=== PATIENT | female | born 1995 | race African-American/Black ===

== ENCOUNTER → 2018-12-02 | Outpatient (CLI) | payer OTHER ==
[2018-12-02 11:26] LABS: HCT 37.8 % (34.0-46.0); HGB 12.1 gm/dL (11.4-16.0); MCH 29.5 pg (25.0-35.0); Mean Platelet Volume 9.2; Platelet Count 290 k/uL (150-450); RDW 12.8 % (11.5-15.5); WBC 10.7 k/uL (3.8-10.6)
== END | disposition home or self-care (01) ==
LOC: LABWHC1 09:33
PROVIDERS: ATTEND Obstetrics & Gynecology
DX: Z34.83 Encounter for supervision of other normal pregnancy, third trimester (principal)
CPT/HCPCS: 36415; 82950; 85027

== ENCOUNTER 2018-12-14 16:11 | Outpatient (CLI) | payer OTHER ==
[2018-12-14 17:25] VITALS: BP 140/80; RESP 16; TEMP 98.1
--- NOTE | 2018-12-14 17:51 | US ---
EXAMINATION TYPE: US OB limited DATE OF EXAM: 12/14/2018 COMPARISON: NONE CLINICAL HISTORY: pt questions srom yesterday am. dr duffys u/s for AIXA . EXAM PERFORMED: Transabdominal (TA) GESTATIONAL AGE / DATING Physician Established: (36 weeks/1 days) EDC: 01/10/2019 No growth performed on today?s study per ordering physician SURVEY AIXA: 15.6 cm Normal Ultrasound evidence of premature rupture of membranes? No HEART RATE: 135 bpm RHYTHM: Normal Impression: Single live intrauterine gestation identified. Amniotic fluid index is calculated within normal limits on limited study. IMPRESSION:
[2018-12-14 17:54] VITALS: PULSE 110
--- NOTE | 2018-12-20 17:17 | P.MSEPDOC ---
Presenting Problems - Arrival Data Date of Arrival on Unit: 12/14/18 Time of Arrival on Unit: 16:11 Mode of Transport: Ambulatory - Complaint OB-Reason for Admission/Chief Complaint: Rule Out PROM Comment: Pt states feeling damp since yesterday morning; cramping Medical History - Information : 2 Para: 1 Term: 1 : 0 Abortions: Spontaneous or Elective: 0 Number of Living Children: 1 - Gestational Age Gestational Age by RACHEL (wks/days): 35 Weeks and 6 Days - History Complications: GBS+, Prior Review of Systems - Review of Systems Constitutional: No problems Breast: No problems ENT: No problems Cardiovascular: No problems Respiratory: No problems Gastrointestinal: No problems Genitourinary: No problems Musculoskeletal: No problems Neurological: No problems Skin: No problems Vital Signs - Temperature Temperature: 98.1 F Temperature Source: Temporal Artery Scan - Pulse Right Apical Pulse Rate: 110 Pulse Assessment Method: Pulse Oximetry - Respirations Respiratory Rate: 16 Oxygen Delivery Method: Room Air O2 Sat by Pulse Oximetry: 97 - Blood Pressure Right Arm Blood Pressure: 140/80 Blood Pressure Mean: 100 Blood Pressure Source: Automatic Cuff Medical Screen Scoring (Pre) - Cervical Exam Dilation: Exam Deferred Effacement: Exam Deferred Membranes: Intact - Uterine Contractions Frequency: N/A Duration: N/A Intensity: N/A - Maternal Vital Signs Maternal Temperature: N/A Maternal Blood Pressure: N/A Signs of Preeclampsia: N/A Maternal Respirations: N/A - Maternal Trauma Maternal Trauma: N/A - Assessment Baseline FHR: 140 Heart Rate - NICHD Category: Category I (Normal) = 0 NST: Reactive Position: N/A Station: N/A - Total Score Total Score (Pre): 0 - Level of Risk Level of Risk: Low (0-5) Physician Notification (Pre) - Physician Notified Physician Notified Date: 12/14/18 Physician Notified Time: 17:40 Physician/Practitioner Notifed:: Haritha Spoke With: Haritha New Order Received: Yes - Notification Comment Comment: Reported neg amnisure, oswald 15.6, sve not performed r/t pt not julio and comfortable. States to d/c home. Follow up as scheduled. Disposition - Disposition OB Disposition: Discharge to home, Written follow up instructions reviewed Discharge Date: 12/14/18 Discharge Time: 17:50 I agree with the RN Medical Screening Exam: Yes Risk & Benefit of care provided described in d/c instruction: Yes Diagnosis: FALSE LABOR AT OR AFTER 37 COMPLETED WEEKS OF GESTATION
== END 2018-12-14 17:50 | disposition home or self-care (01) ==
LOC: FBPOP 16:11
PROVIDERS: ATTEND Obstetrics & Gynecology
DX: O47.03 False labor before 37 completed weeks of gestation, third trimester (principal); Z3A.35 35 weeks gestation of pregnancy
CPT/HCPCS: 59025; 76815; 84112

== ENCOUNTER 2018-12-25 11:14 | Inpatient (IN) | payer OTHER ==
[2018-12-25 12:23] LABS: Basophils % (A) 0 %; Eosinophils # (A) 0.1 k/uL (0-0.7); Eosinophils % (A) 1 %; HCT 37.5 % (34.0-46.0); HGB 11.9 gm/dL (11.4-16.0); Lymphocytes # (A) 2.4 k/uL (1.0-4.8); Lymphocytes % (A) 24 %; MCH 27.7 pg (25.0-35.0); MCHC 31.7 g/dL (31.0-37.0); MCV 87.4 fL (80.0-100.0); Mean Platelet Volume 9.6; Monocytes # (A) 0.8 k/uL (0-1.0); Monocytes % (A) 8 %; Neutrophils # (A) 6.3 k/uL (1.3-7.7); Neutrophils % (A) 63 %; Platelet Count 306 k/uL (150-450); RBC 4.29 m/uL (3.80-5.40); RDW 12.5 % (11.5-15.5)
[2018-12-25 12:35] LABS: ALT 26 U/L (9-52); AST 22 U/L (14-36); Blood Urea Nitrogen 3 mg/dL (7-17); LDH 404 U/L (313-618)
[2018-12-25 13:30] LABS: Glucose,Urine (UA) Negative (Negative); Ketones,Urine Negative (Negative); Protein,Urine Trace (Negative)
[2018-12-25] MEDS ORDERED: ceFAZolin IN SWFI 2 GM/20 ML SYRINGE IVP ONE (13:59)
[2018-12-25] MEDS ORDERED: CITRIC ACID-SODIUM CITRATE 15 ML CUP PO ONE (13:59)
[2018-12-25 14:20] VITALS: BMI 40.8
[2018-12-25] MEDS: LACTATED RINGERS 1,000 ML IV SCH ×2 (14:47→22:20)
[2018-12-25] MEDS ORDERED: DEXAMETHASONE SOD PHOS (MDV) 100 MG/10 ML VIAL ONE (16:40)
[2018-12-25] MEDS ORDERED: ONDANSETRON 4 MG/2 ML VIAL ONE (16:40)
[2018-12-25] MEDS ORDERED: MORPHINE SULFATE (PF) 0.3 MG/0.3 ML SYR ONE (16:40)
[2018-12-25] MEDS ORDERED: OXYTOCIN 10 UNIT/ML 1 ML VIAL ONE (16:40)
[2018-12-25] MEDS ORDERED: NALBUPHINE 10 MG/ML (1 ML AMP) ONE (16:40)
[2018-12-25] MEDS ORDERED: NALOXONE 0.4 MG/ML 1 ML VIAL IV PRN (17:21)
[2018-12-25] MEDS ORDERED: MORPHINE SULFATE 2 MG/ML SYRINGE IVP PRN (17:21)
[2018-12-25] MEDS ORDERED: ONDANSETRON 4 MG/2 ML VIAL IVP PRN ×2 (17:21→17:36)
[2018-12-25] MEDS ORDERED: diphenhydrAMINE 50 MG/ML 1 ML VIAL IVP PRN ×3 (17:21→17:36)
[2018-12-25] MEDS ORDERED: METOCLOPRAMIDE 5 MG/ML 2 ML VIAL IVP PRN (17:36)
[2018-12-25] MEDS ORDERED: ZOLPIDEM 5 MG TAB PO PRN (17:36)
[2018-12-25] MEDS ORDERED: diphenhydrAMINE 25 MG CAP PO PRN (17:36)
[2018-12-25] MEDS ORDERED: HYDROcodone/APAP 7.5-325MG 1 EACH TAB PO PRN (17:36)
[2018-12-25] MEDS ORDERED: diphenhydrAMINE 50 MG CAP PO PRN (17:36)
[2018-12-25] MEDS ORDERED: KETOROLAC 30 MG/ML 1 ML VIAL IVP PRN (17:36)
--- NOTE | 2018-12-25 17:39 | P.HPOB ---
History of Present Illness H&P Date: 12/25/18 Chief Complaint: Intrauterine at term: Gestational hypertension patient is a 23-year-old at 37 weeks who arrived to my office today with elevated blood pressure 140/70 8. She was sent to labor and delivery and was monitored here she had repetitive but pressures were minimally elevated and due to that she is past 37 weeks a decision to move forward with a repeat section for gestational hypertension was made. Her course was initially well, I did not start seeing her until 32 weeks as she was transferred care. She was taking aspirin through most the Precis due to a history of preeclampsia, she also had a history of hemorrhage during her last . During our observations today she is done very well, her blood pressures however have increased through the day and have been slightly elevated going into the section. Pertinent labs include O+ blood type, Rh and it was negative, rubella was immune, hepatitis B surface antigen and RPR were both negative GBS was positive but she is intact. On physical exam vital signs are stable and afebrile. Heart regular, lungs clear, extremities without pain. Abdomen soft gravid uterus is noted. Category 1 tracing is noted. Assessment intrauterine at term: Gestational hypertension Plan repeat section. Past Medical History Past Medical History: No Reported History History of Any Multi-Drug Resistant Organisms: None Reported Past Surgical History: Section, Tonsillectomy Additional Past Anesthesia/Blood Transfusion Reaction / Comment(s): no hx of transfusion Past Psychological History: Anxiety Smoking Status: Former smoker Past Alcohol Use History: None Reported Past Drug Use History: Marijuana Additional Drug Use History / Comment(s): before - Past Family History Mother Family Medical History: Cancer, Thyroid Disorder Medications and Allergies Home Medications Medication Instructions Recorded Confirmed Type Aspirin [Adult Low Dose Aspirin EC] 81 mg PO DAILY 12/14/18 12/25/18 History Pnv,Calcium 72/Iron/Folic Acid 1 each PO DAILY 12/25/18 12/25/18 History [ Plus Tablet] Allergies Allergy/AdvReac Type Severity Reaction Status Date / Time No Known Allergies Allergy Verified 12/25/18 11:36 Exam Osteopathic Statement: *. No significant issues noted on an osteopathic structural exam other than those noted in the History and Physical/Consult. Vital Signs Temp Pulse Resp BP Pulse Ox 12/25/18 14:12 99.6 F 94 18 135/75 12/25/18 11:45 98.6 F 141 H 20 135/71 100 Intake and Output 12/25/18 12/25/18 12/25/18 06:59 14:59 22:59 Other: # Voids 2 Weight 114.759 kg - OBG Physical Exam Breast: both: normal (no masses) Abdomen: bowel sounds normal, no diffuse tenderness, no bruit present, no guarding noted, no hepatomegaly, no splenomegaly, no mass Vulva: both: normal Vagina: normal moisture, no discharge Cervix: no lesion, no discharge Uterus: normal size, normal contour Adnexa: both: normal Anus/Rectum: normal perianal skin, no rectal mass, no hemorrhoids, heme negative Results Result Diagrams: 12/25/18 12:11 12/25/18 12:11 Abnormal Lab Results - Last 24 Hours (Table) 12/25/18 12/25/18 Range/Units 11:55 12:11 BUN 3 L (7-17) mg/dL Urine Protein Trace H (Negative)
[2018-12-25] MEDS ORDERED: LACTATED RINGERS 1,000 ML IV SCH (17:45)
--- NOTE | 2018-12-25 17:46 | P.OP ---
Date of Procedure: 12/25/18 Preoperative Diagnosis: Intrauterine term: Gestational hypertension Postoperative Diagnosis: Same Procedure(s) Performed: Repeat low transverse section Anesthesia: spinal Surgeon: Jarrod Mg Hair Boiler Operator #1: Maksim Ramos Estimated Blood Loss (ml): 600 IV fluids (ml): 1,000 Urine output (ml): 100 Pathology: other (Placenta) Condition: stable Disposition: floor Operative Findings: Female scores of 7 and 9 at one and 5 minutes respectively and the weight was 6 lbs. 8 oz. Description of Procedure: Patient was taken to the operating suite where a spinal anesthetic was found be adequate. She was prepped and draped in normal sterile fashion and placed in dorsal supine position with leftward tilt. Initially a Pfannenstiel skin incision was made and this incision was then carried through to underlying layer of the fascia with the second knife. Fascia was then nicked in the midline and this opening was extended laterally with Galdamez scissors. Superior and inferior aspect of this incision were then grasped tented up and bluntly and sharply dissected off the rectus muscles. Significant scarring of her fascia is noted. Once fascial incision was extended blunt dissection through the peritoneum was made and this opening was extended superiorly and inferiorly with good visualization of both bowel bladder. Bladder blade was then placed and the vesicouterine peritoneum identified and entered sharply with Metzenbaum scissors. This opening was then extended across face uterus bladder was dissected out of the operative field. Knife was then used to incise uterus and this opening was fully developed with hemostat and then bluntly extended. Head was noted and was elevated into the incision however was unable to pass through the incision due to how tight her fascial layer and muscular lower layer was a modified Maylard was done on the right side incised and the rectus muscles and then using a vacuum with 1 pop-off the baby was delivered. Vacuum was pumped to the minimum green psi and once this was accomplished the first pop-off occurred almost immediately likely due to significant hair of the baby and just was not well applied, the second time with application the baby was easily lifted into the incision and delivered in less than 15 seconds. Once this was completed vacuum was removed shoulders were easily delivered with gentle downward upper traction followed by the remainder the baby. Mouth and nares were then bulb suctioned and nursery personnel was present to assume care with umbilical cord being clamped cut usual fashion. Placenta was then delivered intact and Pitocin was added to the IV. Uterus was then exteriorized cleared of clots and debris and closed in 21 layer with 0 Vicryl suture. Once excellent hemostasis was obtained blood and debris was suctioned from the posterior cul-de-sac and uterus was reinserted into the abdomen. Peritoneal layer was then closed with 0 Vicryl suture. Fascial layer was closed with 0 Vicryl suture. One layer of 3-0 Vicryl was placed in deep subcuticular tissues to reapproximate the skin and close space, skin was then closed with 3-0 Vicryl. Sponge, lap, needle counts were all correct 2. Patient was then taken to the recovery room in stable and satisfactory condition.
[2018-12-25] MEDS: SENNOSIDES-DOCUSATE SODIUM 1 EACH TAB PO SCH (19:45)
[2018-12-26 06:48] LABS: Basophils % (A) 0 %; Eosinophils # (A) 0.1 k/uL (0-0.7); Eosinophils % (A) 0 %; HCT 36.1 % (34.0-46.0); HGB 11.4 gm/dL (11.4-16.0); Lymphocytes % (A) 12 %; MCH 27.5 pg (25.0-35.0); MCHC 31.6 g/dL (31.0-37.0); Mean Platelet Volume 9.1; Monocytes # (A) 1.4 k/uL (0-1.0); Monocytes % (A) 8 %; Neutrophils # (A) 12.9 k/uL (1.3-7.7); Neutrophils % (A) 77 %; Platelet Count 283 k/uL (150-450); RBC 4.15 m/uL (3.80-5.40); RDW 12.3 % (11.5-15.5); WBC 16.7 k/uL (3.8-10.6)
--- NOTE | 2018-12-26 07:07 | P.PNOBGPC ---
Subjective - Subjective Patient reports: Reports appetite normal, Reports voiding normally, Reports pain well controlled, Reports ambulating normally : doing well Objective - Vital Signs Latest vital signs: Vital Signs Temp Pulse Resp BP Pulse Ox 12/26/18 05:00 16 12/26/18 03:57 98.6 F 88 16 136/76 96 12/26/18 02:00 16 12/25/18 23:30 98.6 F 92 16 141/64 96 12/25/18 22:00 16 12/25/18 20:21 16 98 12/25/18 20:00 16 12/25/18 19:46 99.4 F 90 16 138/83 98 12/25/18 19:16 99.0 F 87 16 128/63 98 12/25/18 18:46 95 16 125/58 97 12/25/18 18:31 93 16 124/56 97 12/25/18 18:21 16 96 12/25/18 18:16 93 16 126/60 97 12/25/18 18:01 83 16 118/54 97 12/25/18 17:46 98.3 F 78 16 120/58 97 12/25/18 14:12 99.6 F 94 18 135/75 12/25/18 11:45 98.6 F 141 H 20 135/71 100 Intake and Output 12/25/18 12/26/18 12/26/18 22:59 06:59 14:59 Intake Total 900 Output Total 600 3050 Balance 300 -3050 Intake: IV 900 Lactated Ringers 1,000 ml 900 @ 125 mls/hr IV .Q8H [facility] Rx#:[id number] Output: Urine 600 3050 Uretheral (Yuan) 600 Other: Voiding Method Indwelling Catheter Toilet # Voids 1 - Exam Lungs: bilateral: normal Chest: Normal S1, Normal S2 Extremities: Present: normal Abdomen: Present: normal appearance, soft. Absent: distention, tenderness Incision: Present: normal, dry, intact Uterus: Present: normal, firm - Labs Labs: Abnormal Lab Results - Last 24 Hours (Table) 12/25/18 12/25/18 12/26/18 Range/Units 11:55 12:11 06:26 WBC 16.7 H (3.8-10.6) k/uL Neutrophils # 12.9 H (1.3-7.7) k/uL Monocytes # 1.4 H (0-1.0) k/uL BUN 3 L (7-17) mg/dL Urine Protein Trace H (Negative) Assessment and Plan Assessment: Post operative day #1. Patient is resting without complaints. Vital signs are stable she is afebrile. Uterus is firm nontender and her incision is intact and dry. CBC is pending at the time of this dictation. My impression this is a normal post course. Plan today is to advance her diet, allow the patient to shower, encourage ambulation, and check a CBC. Most likely home tomorrow or Friday. (1) delivery delivered Current Visit: Yes Status: Acute Code(s): O82 - ENCOUNTER FOR DELIVERY WITHOUT INDICATION SNOMED Code(s): 164152174
[2018-12-26] MEDS: SENNOSIDES-DOCUSATE SODIUM 1 EACH TAB PO SCH ×2 (08:22→19:41)
--- NOTE | 2018-12-26 09:14 | P.PN ---
Progress Note - Text Progress Note Date: 12/26/18 23 yo female status post . Post-op day #1. Patient received intrathecal Duramorph. Patient was seen today, sitting up in bed, no complaints, pain VAS score 0/10, no headache, no itching, no nausea and vomiting. Assessment and plan: Doing well in general no complications from anesthesia.
[2018-12-26] MEDS: ACETAMINOPHEN TAB 325 MG TAB PO PRN (19:40)
--- NOTE | 2018-12-27 07:02 | P.PNOBGPC ---
Subjective - Subjective Patient reports: Reports appetite normal, Reports voiding normally, Reports pain well controlled, Reports ambulating normally : doing well, in NICU (Jaundice.) Objective - Vital Signs Latest vital signs: Vital Signs Temp Pulse Resp BP Pulse Ox 12/26/18 23:47 98.1 F 86 16 128/83 98 12/26/18 16:00 98.0 F 95 14 119/73 12/26/18 12:00 97.9 F 83 16 112/70 12/26/18 08:00 98.2 F 84 14 124/79 Intake and Output 12/26/18 12/26/18 12/27/18 14:59 22:59 06:59 Other: Voiding Method Toilet # Voids 3 - Exam Lungs: bilateral: normal Chest: Normal S1, Normal S2 Extremities: Present: normal Abdomen: Present: normal appearance, soft. Absent: distention, tenderness Incision: Present: normal, dry, intact Uterus: Present: normal, firm Assessment and Plan Assessment: Postoperative day #2. This patient is resting without complaints. Vital signs are stable and she is afebrile. Uterus is firm nontender and her incision is intact and dry. CBC yesterday was normal. Patient is ambulating and urinating without difficulty. Unfortunately her baby is having some jaundice issues and is requiring double phototherapy unfortunately (she states she had this with her previous baby), therefore she is going to stay until most likely tomorrow. (1) delivery delivered Current Visit: Yes Status: Acute Code(s): O82 - ENCOUNTER FOR DELIVERY WITHOUT INDICATION SNOMED Code(s): 187102576
[2018-12-27] MEDS: SENNOSIDES-DOCUSATE SODIUM 1 EACH TAB PO SCH ×2 (08:01→20:11)
[2018-12-27] MEDS: IBUPROFEN 600 MG TAB PO PRN ×2 (08:02→23:15)
[2018-12-27] MEDS: ACETAMINOPHEN TAB 325 MG TAB PO PRN (19:55)
[2018-12-28] MEDS: SENNOSIDES-DOCUSATE SODIUM 1 EACH TAB PO SCH (09:50)
[2018-12-29] MEDS: IBUPROFEN 600 MG TAB PO PRN (07:57)
--- NOTE | 2018-12-29 10:02 | P.DS ---
Providers Date of admission: 12/25/18 13:45 Expected date of discharge: 12/29/18 Attending physician: Jarrod Mg Primary care physician: Stated None Hospital Course: Patient is doing very well post op day 4. She is ambulating, voiding, and she is tolerating her diet. She voices no complaints. Baby is still in special care nursery for hyperbilirubinemia. Plan discharged home today. Vital signs stable and afebrile. Heart regular, lungs clear, extremities without pain. Abdomen soft nontender and her incision is clean dry and intact. Prescriptions for Sharon and Motrin has been provided. All other questions were answered for her prior to discharge. She is stable for discharge this time. Patient Condition at Discharge: Good Plan - Discharge Summary New Discharge Prescriptions: New Ibuprofen [Motrin] 600 mg PO Q6HR PRN #30 tab PRN Reason: Pain HYDROcodone/APAP 5-325MG [Sharon 5-325] 1 tab PO Q4HR PRN #30 tab PRN Reason: Pain No Action Aspirin [Adult Low Dose Aspirin EC] 81 mg PO DAILY Pnv,Calcium 72/Iron/Folic Acid [ Plus Tablet] 1 each PO DAILY Discharge Medication List Aspirin [Adult Low Dose Aspirin EC] 81 mg PO DAILY 12/14/18 [History] Pnv,Calcium 72/Iron/Folic Acid [ Plus Tablet] 1 each PO DAILY 12/25/18 [History] HYDROcodone/APAP 5-325MG [Sharon 5-325] 1 tab PO Q4HR PRN #30 tab 12/29/18 [Rx] Ibuprofen [Motrin] 600 mg PO Q6HR PRN #30 tab 12/29/18 [Rx] Follow up Appointment(s)/Referral(s): Jarrod Mg DO [Doctor of Osteopathic Medicine] - 1 Week Patient Instructions/Handouts: (DC) Activity/Diet/Wound Care/Special Instructions: No heavy lifting, limit stairs and driving, and pelvic rest. If any high temperatures, heavy bleeding, or severe pain call my office Discharge Disposition: HOME SELF-CARE
[2018-12-29 15:28] VITALS: BP 111/67; PULSE 88; RESP 15; TEMP 97.9
[2018-12-29] MEDS: SENNOSIDES-DOCUSATE SODIUM 1 EACH TAB PO SCH (15:28)
== END 2018-12-29 17:45 | disposition home or self-care (01) | DRG 788 ==
LOC: FBPOP 11:14 → 4FBP 13:45
PROVIDERS: ADMIT Obstetrics & Gynecology; ATTEND Obstetrics & Gynecology
PROC: 10D00Z1 Extraction of Products of Conception, Low, Open Approach (ICD-10-PCS; principal; 2018-12-25 16:57)
DX: O13.4 Gestational [pregnancy-induced] hypertension without significant proteinuria, complicating childbirth (principal); O34.211 Maternal care for low transverse scar from previous cesarean delivery; N85.8 Other specified noninflammatory disorders of uterus; Z3A.37 37 weeks gestation of pregnancy; Z37.0 Single live birth; O99.824 Streptococcus B carrier state complicating childbirth; O99.344 Other mental disorders complicating childbirth; F41.9 Anxiety disorder, unspecified; Z79.82 Long term (current) use of aspirin; Z79.899 Other long term (current) drug therapy; Z87.891 Personal history of nicotine dependence; Z80.9 Family history of malignant neoplasm, unspecified; Z83.49 Family history of other endocrine, nutritional and metabolic diseases
CPT/HCPCS: 59025; 81003; 82565; 82570; 83615; 84156; 84443; 84450; 84460; 84520; 85025; 86850; 86900; 86901; 88307; 99215

== ENCOUNTER 2020-02-14 11:59 | Emergency (ER) | payer OTHER ==
[2020-02-14] MEDS ORDERED: diphenhydrAMINE 50 MG/ML 1 ML VIAL IVP STA (12:19)
[2020-02-14] MEDS ORDERED: SODIUM CHLORIDE 0.9% 1,000 ML IV STA ×2 (12:19→13:59)
[2020-02-14] MEDS ORDERED: METOCLOPRAMIDE 5 MG/ML 2 ML VIAL IVP STA (12:19)
--- NOTE | 2020-02-14 12:24 | ED ---
General Adult HPI - General Chief complaint: Nausea/Vomiting/Diarrhea Stated complaint: Vomiting, 7 weeks Time Seen by Provider: 02/14/20 12:11 Source: patient Mode of arrival: ambulatory Limitations: no limitations - History of Present Illness Initial comments: Patient is a 24-year-old female, 7 weeks , presenting to the emergency department with a chief complaint of nausea vomiting abdominal cramping. Patient reports nausea with multiple episodes of nonbilious vomiting. Patient states this morning she has noticed some red tinged vomitus. Denies any diarrhea. Denies any vaginal bleeding, discharge or irritation. States she's been taking her prenatals and is an appointment scheduled with her OB in 2 weeks. Denies any cough chest pain back pain fevers night sweats or chills. Denies taking any medications to alleviate the symptoms. - Related Data Home Medications Medication Instructions Recorded Confirmed Aspirin [Adult Low Dose Aspirin EC] 81 mg PO DAILY 12/14/18 12/25/18 Pnv,Calcium 72/Iron/Folic Acid 1 each PO DAILY 12/25/18 12/25/18 [ Plus Tablet] Previous Rx's Medication Instructions Recorded HYDROcodone/APAP 5-325MG [[place]linda 1 tab PO Q4HR PRN #30 tab 12/29/18 5-325] Ibuprofen [Motrin] 600 mg PO Q6HR PRN #30 tab 12/29/18 Allergies Allergy/AdvReac Type Severity Reaction Status Date / Time No Known Allergies Allergy Verified 02/14/20 12:05 Review of Systems ROS Statement: Those systems with pertinent positive or pertinent negative responses have been documented in the HPI. ROS Other: All systems not noted in ROS Statement are negative. Past Medical History Past Medical History: No Reported History History of Any Multi-Drug Resistant Organisms: None Reported Past Surgical History: Section, Tonsillectomy Additional Past Anesthesia/Blood Transfusion Reaction / Comment(s): no hx of transfusion Past Psychological History: Anxiety Smoking Status: Former smoker Past Alcohol Use History: None Reported Past Drug Use History: Marijuana - Past Family History Mother Family Medical History: Cancer, Thyroid Disorder General Exam Limitations: no limitations General appearance: alert, in no apparent distress Head exam: Present: atraumatic, normocephalic, normal inspection Eye exam: Present: normal appearance, PERRL, EOMI Pupils: Present: normal accommodation ENT exam: Present: normal exam, normal oropharynx, mucous membranes moist, TM's normal bilaterally, normal external ear exam Neck exam: Present: normal inspection, full ROM Respiratory exam: Present: normal lung sounds bilaterally Cardiovascular Exam: Present: regular rate, normal rhythm, normal heart sounds GI/Abdominal exam: Present: soft, normal bowel sounds. Absent: distended, tenderness, guarding Extremities exam: Present: normal inspection, full ROM Back exam: Present: normal inspection, full ROM Neurological exam: Present: alert, oriented X3, normal gait Psychiatric exam: Present: normal affect, normal mood Skin exam: Present: warm, dry, intact, normal color Course Vital Signs 02/14/20 02/14/20 02/14/20 12:03 14:20 15:06 Temperature 98.2 F 98 F 97.9 F Pulse Rate 83 61 74 Respiratory 20 18 17 Rate Blood Pressure 159/77 108/71 110/78 O2 Sat by Pulse 100 100 100 Oximetry Medical Decision Making - Medical Decision Making Patient is a 24-year-old female, , 7 week presenting to the emergency department with a chief complaint of nausea vomiting. Patient is currently taking prenatals and has been having nausea vomiting for the past 24 hours. CBC and CMP are unremarkable. HCG Quant is over 60,000 which is appropriate for her gestational age. Ultrasound shows a single, live intrauterine . UA shows no signs of urinary tract infection but does show 17 red blood cells. Patient denies any vaginal discharge, bleeding or previous spotting. Patient was given Reglan, Benadryl and 1.8 L of fluids. Reevaluation patient reports great improvement in symptoms and feels comfortable going home. Patient has an appointment to see . Return parameters thoroughly discussed with patient is an ascending and agreeable. Case discussed with physician. - Lab Data Result diagrams: 02/14/20 12:38 02/14/20 12:38 Lab Results 02/14/20 02/14/20 02/14/20 Range/Units 12:38 12:38 12:38 WBC 9.7 (3.8-10.6) k/uL RBC 4.52 (3.80-5.40) m/uL Hgb 13.7 (11.4-16.0) gm/dL Hct 42.2 (34.0-46.0) % MCV 93.4 (80.0-100.0) fL MCH 30.3 (25.0-35.0) pg MCHC 32.5 (31.0-37.0) g/dL RDW 12.3 (11.5-15.5) % Plt Count 312 (150-450) k/uL Neutrophils % 74 % Lymphocytes % 18 % Monocytes % 6 % Eosinophils % 1 % Basophils % 0 % Neutrophils # 7.2 (1.3-7.7) k/uL Lymphocytes # 1.8 (1.0-4.8) k/uL Monocytes # 0.5 (0-1.0) k/uL Eosinophils # 0.1 (0-0.7) k/uL Basophils # 0.0 (0-0.2) k/uL Sodium 137 (137-145) mmol/L Potassium 4.2 (3.5-5.1) mmol/L Chloride 104 (98-107) mmol/L Carbon Dioxide 23 (22-30) mmol/L Anion Gap 10 mmol/L BUN 7 (7-17) mg/dL Creatinine 0.46 L (0.52-1.04) mg/dL Est GFR (CKD-EPI)AfAm >90 (>60 ml/min/1.73 sqM) Est GFR (CKD-EPI)NonAf >90 (>60 ml/min/1.73 sqM) Glucose 84 (74-99) mg/dL Calcium 9.9 (8.4-10.2) mg/dL Total Bilirubin 0.9 (0.2-1.3) mg/dL AST 27 (14-36) U/L ALT 19 (4-34) U/L Alkaline Phosphatase 71 (38-126) U/L Total Protein 7.5 (6.3-8.2) g/dL Albumin 4.5 (3.5-5.0) g/dL Lipase 37 (23-300) U/L HCG, Quant 67095.8 mIU/mL Urine Color Yellow Urine Appearance Cloudy H (Clear) Urine pH 6.0 (5.0-8.0) Ur Specific [place]bee 1.034 (1.001-1.035) Urine Protein 1+ H (Negative) Urine Glucose (UA) Negative (Negative) Urine Ketones 4+ H (Negative) Urine Blood Negative (Negative) Urine Nitrite Negative (Negative) Urine Bilirubin Negative (Negative) Urine Urobilinogen 2.0 (<2.0) mg/dL Ur Leukocyte Esterase Negative (Negative) Urine RBC 17 H (0-5) /hpf Urine WBC 2 (0-5) /hpf Ur Squamous Epith Cells 10 H (0-4) /hpf Urine Mucus Many H (None) /hpf Disposition Clinical Impression: Nausea and vomiting during Disposition: HOME SELF-CARE Condition: Stable Instructions (If sedation given, give patient instructions): Acute Nausea and Vomiting (ED) Additional Instructions: Please drink lots of fluids. Return to emergency department if symptoms worsen. Follow-up with your OB. Is patient prescribed a controlled substance at d/c from ED?: No Referrals: None,Stated [Primary Care Provider] - 1-2 days Time of Disposition: 14:40
[2020-02-14 13:26] LABS: Appearance,Urine Cloudy (Clear); Bilirubin,Urine Negative (Negative); Blood,Urine Negative (Negative); Color,Urine Yellow; Glucose,Urine (UA) Negative (Negative); Ketones,Urine 4+ (Negative); Leukocyte Esterase,Urine Negative (Negative); Nitrite,Urine Negative (Negative); Protein,Urine 1+ (Negative); Specific Gravity,Urine 1.034 (1.001-1.035); WBC,Urine 2 /hpf (0-5)
[2020-02-14 13:27] LABS: Mucus,Urine Many /hpf; RBC,Urine 17 /hpf (0-5); Squamous Epithelial Cell,Urine 10 /hpf (0-4)
[2020-02-14 13:28] LABS: Basophils % (A) 0 %; Eosinophils # (A) 0.1 k/uL (0-0.7); Eosinophils % (A) 1 %; HCT 42.2 % (34.0-46.0); HGB 13.7 gm/dL (11.4-16.0); Lymphocytes # (A) 1.8 k/uL (1.0-4.8); Lymphocytes % (A) 18 %; MCH 30.3 pg (25.0-35.0); MCHC 32.5 g/dL (31.0-37.0); MCV 93.4 fL (80.0-100.0); Mean Platelet Volume 10.1; Monocytes # (A) 0.5 k/uL (0-1.0); Monocytes % (A) 6 %; Neutrophils # (A) 7.2 k/uL (1.3-7.7); Neutrophils % (A) 74 %; Platelet Count 312 k/uL (150-450); RBC 4.52 m/uL (3.80-5.40); RDW 12.3 % (11.5-15.5); WBC 9.7 k/uL (3.8-10.6)
[2020-02-14 13:37] LABS: ALT 19 U/L (4-34); AST 27 U/L (14-36); African American GFR (CKD) >90 (>60 ml/min/1.73 sqM); Albumin 4.5 g/dL (3.5-5.0); Alkaline Phosphatase 71 U/L (38-126); Anion Gap 10 mmol/L; Blood Urea Nitrogen 7 mg/dL (7-17); Calcium 9.9 mg/dL (8.4-10.2); Carbon Dioxide 23 mmol/L (22-30); Chloride 104 mmol/L (98-107); Glucose 84 mg/dL (74-99); Non-African American GFR(CKD) >90 (>60 ml/min/1.73 sqM); Potassium 4.2 mmol/L (3.5-5.1); Sodium 137 mmol/L (137-145); Total Bilirubin 0.9 mg/dL (0.2-1.3); Total Protein 7.5 g/dL (6.3-8.2)
--- NOTE | 2020-02-14 13:57 | US ---
EXAMINATION TYPE: Transabdominal DATE OF EXAM: 02/14/2020 1:42 PM COMPARISON: NONE CLINICAL HISTORY: abd cramping, n/v. vomiting EXAM PERFORMED: Transabdominal (TA) EXAM MEASUREMENTS: GESTATIONAL AGE / DATING Physician Established: Not yet established Dates by LMP: (6 weeks/6 days) EDC: 10/03/20 Dates by First Scan: No previous this is first scan Dates by Current Scan for: ( 6 weeks/2 days) EDC: 10/07/20 MATERNAL ANATOMY Uterus: 10.0 x 7.1 x 8.7cm Right Ovary: 2.5 x 1.5 x 1.9cm Left Ovary: 3.6 x 2.0 x 3.0cm Post CDS / Adnexa: appears wnl Presence of free fluid: no Presence of corpus luteal cyst: yes, hypoechoic area left ovary = 2.3 x 1.9 x 2.2cm GESTATION / SURVEY CRL: 5.1cm (6 weeks/2 days) Yolk Sac (normal less than 6mm): 0.3cm Heart Rate: 126 bpm Rhythm: Normal IUP: Live intrauterine Date of LMP: 12/28/19 Beta HcG (if available): Not available at this time Single live IUP 6wks/2days with RACHEL of 10/07/20. Corpus luteum left ovary IMPRESSION: Live intrauterine with a sonographic age of 6 weeks and 2 days and estimated da te of delivery of 10/07/2020.
[2020-02-14] MEDS ORDERED: SODIUM CHLORIDE 0.9% 800 ML IV STA (14:00)
[2020-02-14 14:24] LABS: HCG,Quantitative Serum 61585.8 mIU/mL
[2020-02-14 15:16] VITALS: BP 110/78; PULSE 74; RESP 17; TEMP 97.9
== END 2020-02-14 15:06 | disposition home or self-care (01) ==
LOC: EC 11:59
DX: O21.0 Mild hyperemesis gravidarum (principal); Z3A.01 Less than 8 weeks gestation of pregnancy; Z79.82 Long term (current) use of aspirin; Z87.891 Personal history of nicotine dependence
CPT/HCPCS: 96374; 96375; 96361 ×2; 99284; 36415; 80053; 83690; 85025; 81001; 84702; 76801; J1200; J2765

== ENCOUNTER → 2020-04-27 | Outpatient (CLI) | payer OTHER ==
[2020-04-27 12:19] LABS: HCT 37.5 % (34.0-46.0); HGB 12.4 gm/dL (11.4-16.0); MCH 31.3 pg (25.0-35.0); MCV 94.7 fL (80.0-100.0); Mean Platelet Volume 9.6; Platelet Count 238 k/uL (150-450); RBC 3.96 m/uL (3.80-5.40); RDW 12.5 % (11.5-15.5); WBC 8.7 k/uL (3.8-10.6)
[2020-04-27 20:05] LABS: African American GFR (CKD) 158.1 (60.0-200.0); Non-African American GFR(CKD) 136.4 (60.0-200.0)
[2020-04-27 20:56] LABS: Hepatitis B Surface Antigen Non-Reactive (Non-Reactive)
[2020-04-27 22:12] LABS: HIV 2 AB Non-Reactive (Non-Reactive); HIV AB P24 Non-Reactive (Non-Reactive); HIV P24 AG Non-Reactive (Non-Reactive)
== END | disposition home or self-care (01) ==
LOC: LABWHC1 11:30
PROVIDERS: ATTEND Obstetrics & Gynecology
DX: Z34.02 Encounter for supervision of normal first pregnancy, second trimester (principal); Z3A.00 Weeks of gestation of pregnancy not specified
CPT/HCPCS: 36415; 82565; 82947; 85027; 86762; 86780; 86850; 86900; 86901; 87340; 87390

== ENCOUNTER → 2020-06-27 | Outpatient (CLI) | payer OTHER ==
[2020-06-27 13:09] LABS: HCT 39.9 % (34.0-46.0); HGB 12.8 gm/dL (11.4-16.0); MCH 30.3 pg (25.0-35.0); MCV 94.6 fL (80.0-100.0); Mean Platelet Volume 9.6; Platelet Count 301 k/uL (150-450); RBC 4.22 m/uL (3.80-5.40); RDW 12.7 % (11.5-15.5); WBC 12.7 k/uL (3.8-10.6)
== END | disposition home or self-care (01) ==
LOC: LABWHC1 11:11
PROVIDERS: ATTEND Obstetrics & Gynecology
DX: Z34.82 Encounter for supervision of other normal pregnancy, second trimester (principal); Z3A.00 Weeks of gestation of pregnancy not specified
CPT/HCPCS: 36415; 82950; 85027

== ENCOUNTER 2020-08-04 12:42 | Outpatient (CLI) | payer OTHER ==
[2020-08-04 13:16] LABS: Appearance,Urine Clear (Clear); Bilirubin,Urine Negative (Negative); Blood,Urine Negative (Negative); Color,Urine Yellow; Glucose,Urine (UA) Negative (Negative); Ketones,Urine Negative (Negative); Leukocyte Esterase,Urine Negative (Negative); Nitrite,Urine Negative (Negative); Protein,Urine Negative (Negative); Urobilinogen,Urine <2.0 mg/dL (<2.0)
[2020-08-04 13:52] VITALS: BP 137/73; PULSE 88; RESP 16; TEMP 98.1
--- NOTE | 2020-08-04 14:36 | US ---
EXAMINATION TYPE: US abdomen limited DATE OF EXAM: 08/04/2020 COMPARISON: NONE CLINICAL HISTORY: 24-year-old female RUQ pain, right flank pain for 1 day, patient 32 weeks TECHNIQUE: Multiple sonographic images of the right upper quadrant are obtained. FINDINGS: EXAM MEASUREMENTS: Liver Length: 16.0 cm Gallbladder Wall: 0.3 cm CBD: 0.4 cm Right Kidney: 11.4 x 4.4 x 4.3 cm Double End Sewer notes: *Limitations due to overlying bowel content Pancreas: Obscured by bowel gas Liver: appears wnl as visualized Gallbladder: no evidence of stones Evidence for sonographic Hughes's sign: no CBD: appears wnl as visualized Right Kidney: no evidence of hydronephrosis IMPRESSION: Suboptimal visualization of the pancreas. Otherwise, unremarkable sonographic examination of the righ t upper quadrant.
[2020-08-04 15:32] LABS: ALT 12 U/L (4-34); AST 25 U/L (14-36); African American GFR (CKD) >90 (>60 ml/min/1.73 sqM); Blood Urea Nitrogen 4 mg/dL (7-17); LDH 401 U/L (313-618); Non-African American GFR(CKD) >90 (>60 ml/min/1.73 sqM); Uric Acid 3.9 mg/dL (3.7-7.4)
[2020-08-04 15:53] LABS: Basophils # (A) 0.1 k/uL (0-0.2); Basophils % (A) 0 %; Eosinophils # (A) 0.1 k/uL (0-0.7); Eosinophils % (A) 0 %; HGB 12.3 gm/dL (11.4-16.0); Lymphocytes # (A) 2.2 k/uL (1.0-4.8); Lymphocytes % (A) 18 %; MCHC 31.7 g/dL (31.0-37.0); MCV 94.7 fL (80.0-100.0); Monocytes # (A) 0.9 k/uL (0-1.0); Monocytes % (A) 7 %; Neutrophils # (A) 9.2 k/uL (1.3-7.7); Neutrophils % (A) 73 %; Platelet Count 287 k/uL (150-450); RBC 4.11 m/uL (3.80-5.40); RDW 12.5 % (11.5-15.5); WBC 12.6 k/uL (3.8-10.6)
[2020-08-04 15:56] LABS: Protein/Creatinine Ratio,Urine 0.157
--- NOTE | 2020-08-08 03:41 | P.MSEPDOC ---
Presenting Problems - Arrival Data Date of Arrival on Unit: 08/04/20 Time of Arrival on Unit: 12:42 Mode of Transport: Portable - Complaint OB-Reason for Admission/Chief Complaint: Headache, Pain, Dizziness Comment: Pt c/o headache x 1 wk, RUQ pain since last night, lower back and R flank pain, and hot flashes. Hx of PIH c\2 previous . Sees [place] for PIH hx. Medical History - Information : 3 Para: 2 Term: 1 : 1 Number of Living Children: 2 - Gestational Age Gestational Age by RACHEL (wks/days): 31 Weeks and 3 Days - History Complications: Prior Review of Systems - Review of Systems Constitutional: No problems Breast: No problems ENT: No problems Cardiovascular: No problems Respiratory: No problems Gastrointestinal: No problems Genitourinary: No problems Musculoskeletal: No problems Neurological: Dizziness Skin: No problems Vital Signs - Temperature Temperature: 98.1 F Temperature Source: Oral - Pulse Right Sitting Brachial Pulse Rate: 88 Pulse Assessment Method: Automatic Cuff - Respirations Respiratory Rate: 16 Oxygen Delivery Method: Room Air O2 Sat by Pulse Oximetry: 99 - Blood Pressure Right Arm Sitting Blood Pressure: 137/73 Blood Pressure Mean: 94 Blood Pressure Source: Automatic Cuff Medical Screen Scoring (Pre) - Cervical Exam Dilation: Exam Deferred Effacement: Exam Deferred Membranes: Intact - Uterine Contractions Frequency: N/A Duration: N/A Intensity: N/A - Maternal Vital Signs Maternal Temperature: N/A Maternal Blood Pressure: N/A Signs of Preeclampsia: N/A Maternal Respirations: N/A - Maternal Trauma Maternal Trauma: N/A - Assessment - Baby A Baseline FHR: 140 Heart Rate - NICHD Category: Category I (Normal) = 0 NST: Reactive Position: N/A Station: N/A - Total Score - Baby A Total Score - Baby A: 0 - Total Score - Baby B Total Score - Baby B: 0 - Total Score - Baby C Total Score - Baby C: 0 - Level of Risk - Baby A Level of Risk - Baby A: Low (0-5) - Level of Risk - Baby B Level of Risk - Baby B: Low (0-5) - Level of Risk - Baby C Level of Risk - Baby C: Low (0-5) Physician Notification (Pre) - Physician Notified Physician Notified Date: 08/04/20 Physician Notified Time: 13:40 - Notification Comment Comment: Rubina avila\Dr. Mg, advsd , 31 12/17, c/o headache x 1wk, RUQ pain and hot flashes since last night, back pain that shoots up right flank since this morning. Afebrile, VS and BP trend reviewed. Hx of PIH c\2 previous pregnancies, urine results reviewed. States to order PIH labs and an abdominal US. Physician Notification (Post) - Notification Comment Comment: Rubina avila\Dr. Mg, reviewed pts labs, BP trend and US report. States pt to be discharged home, follow up as scheduled. Disposition - Disposition OB Disposition: Discharge to home Transferred to:: [facility] Discharge Date: 08/04/20 Discharge Time: 16:05 I agree with the RN Medical Screening Exam: Yes Risk & Benefit of care provided described in d/c instruction: Yes Diagnosis: PREG CARE FOR PATIENT W RECURRENT PREG LOSS, THIRD TRIMESTER
== END 2020-08-04 16:05 | disposition home or self-care (01) ==
LOC: FBPOP 12:42
PROVIDERS: ATTEND Obstetrics & Gynecology
DX: O26.23 Pregnancy care for patient with recurrent pregnancy loss, third trimester (principal); Z3A.31 31 weeks gestation of pregnancy
CPT/HCPCS: 59025; 82570; 84156; 82565; 83615; 84450; 84460; 84520; 84550; 85025; 81003; 76705; G0463; 99215

== ENCOUNTER 2020-09-06 11:07 | Outpatient (CLI) | payer OTHER ==
[2020-09-06 12:20] LABS: Creatinine,Urine Random 253.9 mg/dL; Protein/Creatinine Ratio,Urine 0.134
[2020-09-06 12:37] LABS: Basophils % (A) 0 %; Eosinophils # (A) 0.1 k/uL (0-0.7); Eosinophils % (A) 1 %; HCT 35.4 % (34.0-46.0); Lymphocytes % (A) 18 %; MCH 30.7 pg (25.0-35.0); MCV 90.3 fL (80.0-100.0); Mean Platelet Volume 9.7; Monocytes # (A) 0.7 k/uL (0-1.0); Monocytes % (A) 6 %; Neutrophils # (A) 8.1 k/uL (1.3-7.7); Neutrophils % (A) 72 %; Platelet Count 290 k/uL (150-450); RBC 3.92 m/uL (3.80-5.40); RDW 12.2 % (11.5-15.5); WBC 11.3 k/uL (3.8-10.6)
[2020-09-06 12:48] LABS: INR 0.9 (<1.2); Partial Thromboplastin Time 22.5 sec (22.0-30.0); Prothrombin Time 9.8 sec (9.0-12.0)
[2020-09-06 13:00] LABS: ALT 12 U/L (4-34); AST 25 U/L (14-36); African American GFR (CKD) >90 (>60 ml/min/1.73 sqM); Blood Urea Nitrogen 5 mg/dL (7-17); LDH 397 U/L (313-618); Magnesium 1.5 mg/dL (1.6-2.3); Non-African American GFR(CKD) >90 (>60 ml/min/1.73 sqM); Uric Acid 4.3 mg/dL (3.7-7.4)
[2020-09-06 13:24] LABS: Appearance,Urine Cloudy (Clear); Bacteria,Urine Occasional /hpf; Bilirubin,Urine Negative (Negative); Blood,Urine Negative (Negative); Calcium Oxalate Crystals,Urine Rare /hpf; Color,Urine Yellow; Glucose,Urine (UA) Negative (Negative); Ketones,Urine Negative (Negative); Leukocyte Esterase,Urine Trace (Negative); Mucus,Urine Many /hpf; Nitrite,Urine Negative (Negative); PH, Urine 6.5 (5.0-8.0); Protein,Urine 1+ (Negative); Specific Gravity,Urine 1.024 (1.001-1.035); Squamous Epithelial Cell,Urine 16 /hpf (0-4); Urobilinogen,Urine <2.0 mg/dL (<2.0); WBC,Urine 2 /hpf (0-5)
--- NOTE | 2020-09-06 13:25 | P.PN ---
Progress Note - Text Progress Note Date: 09/06/20 Patient was seen and evaluated in labor and delivery for gestational hypertension versus pre-clamped. I have reviewed labs and studies so far. NST was reactive there are no contractions on the monitor. She has a category 1 tracing. All of the preeclamptic labs were normal. Platelets were normal is TLT was normal a protein creatinine ratio was 0.13 which is also normal. A urine is still pending but unless it shows something dramatically different will plan to discharge her to home with gestational hypertension after return Friday or Friday for repeat blood pressure and an NST and plan will be to do repeat section next week after she is 37 weeks. She is aware that this could still be early preeclampsia that these labs may not show the complete picture but since all the more normal and she is only 36 weeks and she has no real true severe features of preeclampsia (she does have a mild headache and some what is now described more as lower chest/rib pain not epigastric pain) she has no blurry vision or changes that way and she also has deep tendon reflexes are 1+. Therefore, we'll plan a section at 37 weeks but it still could be needed sooner should any changes occur and that's what we will have her follow-up during the weekend for nonstress test and blood pressure check. Questions are answered for her at this time and she was stable for discharge.
== END 2020-09-06 13:56 | disposition home or self-care (01) ==
LOC: FBPOP 11:07
PROVIDERS: ATTEND Obstetrics & Gynecology
DX: O13.3 Gestational [pregnancy-induced] hypertension without significant proteinuria, third trimester (principal); Z3A.37 37 weeks gestation of pregnancy
CPT/HCPCS: 59025; 81001; 82565; 82570; 83615; 83735; 84156; 84450; 84460; 84520; 84550; 85025; 85610; 85730

== ENCOUNTER 2020-09-09 11:41 | Outpatient (CLI) | payer OTHER ==
[2020-09-09 12:45] VITALS: BP 134/63; PULSE 71; RESP 17; TEMP 97.9
--- NOTE | 2020-09-09 20:34 | P.MSEPDOC ---
Presenting Problems - Arrival Data Date of Arrival on Unit: 09/09/20 Time of Arrival on Unit: 11:41 Mode of Transport: Ambulatory - Complaint OB-Reason for Admission/Chief Complaint: NST, Other Comment: pt was seen in office 09/06 and was sent to [facility] for labwork, pt was dcd home and was told to come into hospital today for NST and blood pressure check, pt denies lof/vb, reports + fm, denies mahoney/blurred vision/epigastric pain, abd soft and non tender Medical History - Information : 3 Para: 2 Term: 2 : 0 Abortions: Spontaneous or Elective: 0 Number of Living Children: 2 - Gestational Age Gestational Age by RACHEL (wks/days): 36 Weeks and 4 Days - History Complications: Prior Review of Systems - Review of Systems Constitutional: No problems Breast: No problems ENT: No problems Cardiovascular: No problems Respiratory: No problems Gastrointestinal: No problems Genitourinary: No problems Musculoskeletal: No problems Neurological: No problems Skin: No problems Vital Signs - Temperature Temperature: 97.9 F Temperature Source: Temporal Artery Scan - Pulse Right Brachial Pulse Rate: 71 Pulse Assessment Method: Automatic Cuff - Respirations Respiratory Rate: 17 Oxygen Delivery Method: Room Air O2 Sat by Pulse Oximetry: 100 - Blood Pressure Right Arm Blood Pressure: 134/63 Blood Pressure Mean: 86 Blood Pressure Source: Automatic Cuff Medical Screen Scoring (Pre) - Cervical Exam Dilation: Exam Deferred Effacement: Exam Deferred Membranes: Intact - Uterine Contractions Frequency: > 5 minutes apart = 1 Duration: > 40 seconds = 2 Intensity: N/A - Maternal Vital Signs Maternal Temperature: N/A Maternal Blood Pressure: N/A Signs of Preeclampsia: N/A Maternal Respirations: N/A - Maternal Trauma Maternal Trauma: N/A - Assessment - Baby A Baseline FHR: 130 Heart Rate - NICHD Category: Category I (Normal) = 0 NST: Reactive Position: N/A Station: N/A - Total Score - Baby A Total Score - Baby A: 3 - Total Score - Baby B Total Score - Baby B: 3 - Total Score - Baby C Total Score - Baby C: 3 - Level of Risk - Baby A Level of Risk - Baby A: Low (0-5) - Level of Risk - Baby B Level of Risk - Baby B: Low (0-5) - Level of Risk - Baby C Level of Risk - Baby C: Low (0-5) Physician Notification (Pre) - Physician Notified Physician Notified Date: 09/09/20 Physician Notified Time: 12:08 New Order Received: Yes (dc home) - Notification Comment Comment: pt to come to triage 09-11 for follow up blood pressure check and NST per Dr Mg Disposition - Disposition OB Disposition: Discharge to home, Written follow up instructions reviewed Discharge Date: 09/09/20 Discharge Time: 12:30 I agree with the RN Medical Screening Exam: Yes Risk & Benefit of care provided described in d/c instruction: Yes Diagnosis: GESTATIONAL HTN W/O SIGNIFICANT PROTEINURIA, THIRD TRIMESTER
== END 2020-09-09 12:30 | disposition home or self-care (01) ==
LOC: FBPOP 11:41
PROVIDERS: ATTEND Obstetrics & Gynecology
DX: O16.3 Unspecified maternal hypertension, third trimester (principal); Z3A.36 36 weeks gestation of pregnancy
CPT/HCPCS: 59025; G0463; 99213

== ENCOUNTER 2020-09-12 10:00 | Inpatient (IN) | payer OTHER ==
[2020-09-08 13:37] VITALS: BMI 38.4
--- NOTE | 2020-09-11 12:28 | P.HPOB ---
History of Present Illness H&P Date: 09/11/20 Chief Complaint: Intrauterine at term: Prior section Patient is a 24-year-old 3 para 2 at 37 weeks gestation who arrives for repeat section due to gestational hypertension. She had had a generally unremarkable and then at her 36 weeks visit she had mildly elevated blood pressure. This was verified on repeat blood pressure checks and pre-eclamptic labs were ordered but were all normal. She again returned over the weekend and had basically normal blood pressures and a reactive NST therefore section has been scheduled for 37 weeks. Risks/benefits/alternatives to this procedure were discussed with the patient in detail and all questions were answered for her prior to proceeding to the operative room. She did have mild preeclampsia with both her first and second babies as well necessitating delivery prior to onset of labor. Her course generally speaking otherwise was unremarkable and she is feeling well at this time. Past Medical History Past Medical History: GERD/Reflux, Hypertension Additional Past Medical History / Comment(s): pre-eclampsia & high BP w/first History of Any Multi-Drug Resistant Organisms: None Reported Past Surgical History: Section, Tonsillectomy Past Anesthesia/Blood Transfusion Reactions: No Reported Reaction Additional Past Anesthesia/Blood Transfusion Reaction / Comment(s): no hx of transfusion Smoking Status: Never smoker - Past Family History Mother Family Medical History: Cancer, Thyroid Disorder Medications and Allergies Home Medications Medication Instructions Recorded Confirmed Type Aspirin [Adult Low Dose Aspirin EC] 81 mg PO DAILY 12/14/18 09/09/20 History Allergies Allergy/AdvReac Type Severity Reaction Status Date / Time No Known Allergies Allergy Verified 09/09/20 11:55 Exam Osteopathic Statement: *. No significant issues noted on an osteopathic st ructural exam other than those noted in the History and Physical/Consult. - OBG Physical Exam Breast: both: normal (no masses) Abdomen: bowel sounds normal, no diffuse tenderness, no bruit present, no guarding noted, no hepatomegaly, no splenomegaly, no mass Vulva: both: normal Vagina: normal moisture, no discharge Cervix: no lesion, no discharge Uterus: normal size, normal contour Adnexa: both: normal Anus/Rectum: normal perianal skin, no rectal mass, no hemorrhoids, heme negative
[2020-09-12] MEDS ORDERED: CITRIC ACID-SODIUM CITRATE 15 ML CUP PO ONE (10:25)
[2020-09-12] MEDS: LACTATED RINGERS 1,000 ML IV SCH ×3 (10:28→15:50)
[2020-09-12 11:19] LABS: Basophils % (A) 0 %; Eosinophils # (A) 0.1 k/uL (0-0.7); Eosinophils % (A) 1 %; HCT 36.4 % (34.0-46.0); HGB 12.5 gm/dL (11.4-16.0); Lymphocytes # (A) 2.5 k/uL (1.0-4.8); Lymphocytes % (A) 22 %; MCH 31.2 pg (25.0-35.0); MCHC 34.5 g/dL (31.0-37.0); MCV 90.4 fL (80.0-100.0); Mean Platelet Volume 11.1; Monocytes # (A) 0.8 k/uL (0-1.0); Monocytes % (A) 7 %; Neutrophils # (A) 7.6 k/uL (1.3-7.7); Neutrophils % (A) 68 %; Platelet Count 284 k/uL (150-450); RBC 4.02 m/uL (3.80-5.40); RDW 12.3 % (11.5-15.5); WBC 11.2 k/uL (3.8-10.6)
[2020-09-12 11:32] LABS: Amphetamine Screen,Urine Not Detected (NotDetected); Barbiturate Screen,Urine Not Detected (NotDetected); Benzodiazepines Screen,Urine Not Detected (NotDetected); Cocaine Screen,Urine Not Detected (NotDetected); Methadone Screen, Urine Not Detected (NotDetected); Opiate Screen,Urine Not Detected (NotDetected); Oxycodone Screen, Urine Not Detected (NotDetected); Phencyclidine Screen,Urine Not Detected (NotDetected); Tricyclic Antidepressant,Urine Not Detected (NotDetected); Urn Cannabinoid Scrn Detected (NotDetected)
[2020-09-12] MEDS ORDERED: ONDANSETRON 4 MG/2 ML VIAL ONE (12:32)
[2020-09-12] MEDS ORDERED: OXYTOCIN 10 UNIT/ML 1 ML VIAL ONE (12:32)
[2020-09-12] MEDS ORDERED: MORPHINE SULFATE (PF) 0.3 MG/0.3 ML SYR ONE (12:32)
[2020-09-12] MEDS ORDERED: PHENYLEPHRINE-0.9% NACL SYG 1 MG/10 ML SYRINGE ONE (12:32)
[2020-09-12] MEDS ORDERED: KETOROLAC 15 MG/ML 1 ML VIAL ONE (12:32)
[2020-09-12] MEDS ORDERED: ACETAMINOPHEN TAB 325 MG TAB PO PRN (13:34)
[2020-09-12] MEDS ORDERED: diphenhydrAMINE 25 MG CAP PO PRN (13:34)
[2020-09-12] MEDS ORDERED: diphenhydrAMINE 50 MG/ML 1 ML VIAL IVP PRN ×2 (13:34)
[2020-09-12] MEDS ORDERED: ONDANSETRON 4 MG/2 ML VIAL IVP PRN (13:34)
[2020-09-12] MEDS ORDERED: NALOXONE 0.4 MG/ML 1 ML VIAL IV PRN (13:34)
[2020-09-12] MEDS ORDERED: KETOROLAC 15 MG/ML 1 ML VIAL IVP PRN (13:34)
[2020-09-12] MEDS ORDERED: diphenhydrAMINE 50 MG CAP PO PRN (13:34)
[2020-09-12] MEDS ORDERED: ZOLPIDEM 5 MG TAB PO PRN (13:34)
[2020-09-12] MEDS ORDERED: METOCLOPRAMIDE 5 MG/ML 2 ML VIAL IVP PRN (13:34)
[2020-09-12] MEDS ORDERED: MEASLES-MUMPS-RUBELLA VACC/PF 12,500 UNIT/0.5 ML VIAL SQ ONE (13:34)
[2020-09-12] MEDS ORDERED: HYDROcodone/APAP 7.5-325MG 1 EACH TAB PO PRN (13:34)
--- NOTE | 2020-09-12 13:41 | P.OP ---
Date of Procedure: 09/12/20 Preoperative Diagnosis: Intrauterine at term: Prior sections Postoperative Diagnosis: Same Procedure(s) Performed: Repeat low transverse section Anesthesia: spinal Surgeon: Jarrod Mg Order Processing Specialist #1: Sandra Huitron Estimated Blood Loss (ml): 500 IV fluids (ml): 800 Urine output (ml): 200 Pathology: other (placenta) Condition: stable Disposition: floor Operative Findings: Female scores and weight are pending but both mother and baby are stable following delivery. Description of Procedure: Patient was taken to the operating suite where a spinal anesthetic was found be adequate. She was prepped and draped in the normal sterile fashion and placed in the dorsal supine position with leftward tilt. Initially a Pfannenstiel skin incision was made and this incision was then carried through to the underlying layer of the fascia second knife. Fascia was then nicked in the midline and this opening was extended laterally with Galdamez scissors. Superior and inferior aspect of this incision was then grasped tented up and bluntly and sharply dissected off the rectus muscles. Significant scarring of the fascial layer was noted. Once this was completed sharp entry into the peritoneum was then done and this incision was extended superiorly and inferiorly with good visualization of both bowel bladder. Knife was then used to incise uterus this opening was fully developed with hemostat and then extended bluntly. Due to the amount of scarring in the fashion of the fascia was not opening as well as we would like head was able be brought down into the incision line but not fully delivered therefore vacuum was placed very carefully and pumped to the minimum millimeters of mercury for it to be in the good range and with one pull in less than 20 seconds the baby's head was easily delivered posterior and anterior shoulders were then delivered gentle downward upper traction followed by the remainder the baby and at this point nursery personnel was present and assumed care. Umbilical cord was then clamped cut usual fashion an mouth and nares were bulb suctioned. Ascent was then delivered intact and Pitocin was added to the IV. We were unable to deliver the uterus through the incision due to the fascia not expanding is much like therefore wall in the abdomen incision was closed with 0 Vicryl suture in running fashion in 2 layers. Once excellent hemostasis was obtained blood and debris was suctioned out as best we could and then peritoneal layer was identified with hemostats and closed with 0 Vicryl suture. Fascial l rashida was then closed with 0 Vicryl suture. One layer of 3-0 Vicryl was placed in deep subcuticular tissues to reapproximate skin and close space. Skin was then closed with 3-0 Vicryl subcuticular. Sponge, lap, needle counts were all correct 2. Patient was then taken to the recovery room in stable and satisfactory condition.
[2020-09-12] MEDS ORDERED: LACTATED RINGERS 1,000 ML IV SCH (13:45)
[2020-09-12] MEDS: SENNOSIDES-DOCUSATE SODIUM 1 EACH TAB PO SCH (19:46)
[2020-09-13] MEDS: LACTATED RINGERS 1,000 ML IV SCH
[2020-09-13 04:39] VITALS: RESP 16
--- NOTE | 2020-09-13 07:09 | P.PN ---
Progress Note - Text Date: 09/13/2020 Time: 06:58 The patient is status post section Vital signs stable VAS: 0-10 Patient has no complaints of pain. The patient incurred some minimal itching yesterday, this itching is now subsiding. Pain meds to be managed by service.
[2020-09-13] MEDS: SENNOSIDES-DOCUSATE SODIUM 1 EACH TAB PO SCH ×2 (08:34→19:59)
[2020-09-13] MEDS: IBUPROFEN 600 MG TAB PO PRN ×3 (08:35→23:00)
[2020-09-13 08:40] LABS: Basophils # (A) 0.1 k/uL (0-0.2); Basophils % (A) 0 %; Eosinophils # (A) 0.1 k/uL (0-0.7); Eosinophils % (A) 0 %; HCT 34.6 % (34.0-46.0); HGB 11.7 gm/dL (11.4-16.0); Lymphocytes # (A) 1.7 k/uL (1.0-4.8); Lymphocytes % (A) 13 %; MCH 30.6 pg (25.0-35.0); MCHC 33.7 g/dL (31.0-37.0); MCV 90.9 fL (80.0-100.0); Mean Platelet Volume 9.9; Monocytes % (A) 8 %; Neutrophils # (A) 9.7 k/uL (1.3-7.7); Neutrophils % (A) 76 %; Platelet Count 230 k/uL (150-450); RBC 3.81 m/uL (3.80-5.40); RDW 11.9 % (11.5-15.5); WBC 12.9 k/uL (3.8-10.6)
--- NOTE | 2020-09-13 09:14 | P.PNOBGPC ---
Subjective - Subjective Principal diagnosis: Postop day 1 Interval history: Patient is doing very well this morning. She is ambulating, voiding and she is tolerating a diet. We'll plan to continue current care for now. Her incision was a little oozy last night but this morning looks intact and clean and dry. Patient reports: Reports appetite normal, Reports voiding normally, Reports pain well controlled, Reports ambulating normally : doing well Objective - Vital Signs Latest vital signs: Vital Signs Temp Pulse Resp BP Pulse Ox 09/13/20 08:00 98.4 F 82 16 130/76 09/13/20 04:00 98.1 F 68 16 123/75 98 09/13/20 00:00 98.3 F 74 18 128/72 98 09/12/20 20:00 98.1 F 79 18 131/71 98 09/12/20 17:00 98.6 F 09/12/20 15:39 95 20 141/64 100 09/12/20 15:13 96.7 F L 60 20 132/60 09/12/20 14:42 84 20 130/58 98 09/12/20 14:13 78 20 126/61 98 09/12/20 13:58 80 119/55 100 09/12/20 13:43 96.3 F L 80 20 114/53 100 09/12/20 10:22 98.2 F 106 H 20 146/84 Intake and Output 09/12/20 09/13/20 09/13/20 22:59 06:59 14:59 Intake Total 4200 Output Total 2300 650 Balance 1900 -650 Intake: IV 4000 Invasive Line 1 2000 Oral 200 Output: Urine 800 650 Uretheral (Yuan) 400 Estimated Blood Loss 1500 Other: Voiding Method Toilet # Voids 0 - Exam Lungs: bilateral: normal Chest: Normal S1, Normal S2 Extremities: Present: normal Abdomen: Present: normal appearance, soft. Absent: distention, tenderness Incision: Present: normal, dry, intact Uterus: Present: normal, firm - Labs Labs: Abnormal Lab Results - Last 24 Hours (Table) 09/12/20 09/12/20 09/13/20 Range/Units 10:20 10:20 07:47 WBC 11.2 H 12.9 H (3.8-10.6) k/uL Neutrophils # 9.7 H (1.3-7.7) k/uL U Marijuana (THC) Screen Detected H (NotDetected)
[2020-09-14] MEDS: IBUPROFEN 600 MG TAB PO PRN ×2 (07:31→14:16)
[2020-09-14 07:51] VITALS: BP 128/69; PULSE 78; TEMP 98.4
--- NOTE | 2020-09-14 11:51 | P.DS ---
Providers Date of admission: 09/12/20 10:00 Expected date of discharge: 09/14/20 Attending physician: Jarrod Mg Primary care physician: Stated None Hospital Course: Is doing very well today postop day 2. She is ambulating, voiding and she is tolerating her diet. She voices no complaints. Vital signs are stable and she is afebrile. Heart regular, lungs clear, extremities without pain. Abdomen is soft uterus is firm positive bowel sounds are noted and her incision is clean dry and intact. Assessment postop day 2. Plan discharged home follow up with me in 1 week. Prescription for Marydel and Motrin for to the pharmacy and all questions and discharge instructions were reviewed with the patient in detail. Patient Condition at Discharge: Good Plan - Discharge Summary Discharge Rx Participant: No New Discharge Prescriptions: New Ibuprofen [Motrin] 600 mg PO Q6HR PRN #30 tab PRN Reason: Pain HYDROcodone/APAP 5-325MG [Marydel 5-325] 1 tab PO Q4HR PRN #30 tab PRN Reason: Pain No Action Aspirin [Adult Low Dose Aspirin EC] 81 mg PO DAILY Discharge Medication List Aspirin [Adult Low Dose Aspirin EC] 81 mg PO DAILY 12/14/18 [History] HYDROcodone/APAP 5-325MG [Marydel 5-325] 1 tab PO Q4HR PRN #30 tab 09/14/20 [Rx] Ibuprofen [Motrin] 600 mg PO Q6HR PRN #30 tab 09/14/20 [Rx] Follow up Appointment(s)/Referral(s): Jarrod Mg DO [Doctor of Osteopathic Medicine] - 1 Week Activity/Diet/Wound Care/Special Instructions: No heavy lifting, limit stairs and driving, and pelvic rest. If any high temperatures, heavy bleeding, or severe pain call my office no tub baths for 2 weeks. Discharge Disposition: HOME SELF-CARE
== END 2020-09-14 14:45 | disposition home or self-care (01) | DRG 788 ==
LOC: 4FBP 10:00
PROVIDERS: ADMIT Obstetrics & Gynecology; ATTEND Obstetrics & Gynecology
PROC: 10D00Z1 Extraction of Products of Conception, Low, Open Approach (ICD-10-PCS; principal; 2020-09-12 12:00)
DX: O34.211 Maternal care for low transverse scar from previous cesarean delivery (principal); O13.4 Gestational [pregnancy-induced] hypertension without significant proteinuria, complicating childbirth; O99.62 Diseases of the digestive system complicating childbirth; K21.9 Gastro-esophageal reflux disease without esophagitis; O99.73 Diseases of the skin and subcutaneous tissue complicating the puerperium; L29.9 Pruritus, unspecified; Z3A.37 37 weeks gestation of pregnancy; Z37.0 Single live birth; Z79.82 Long term (current) use of aspirin; Z80.9 Family history of malignant neoplasm, unspecified; Z83.49 Family history of other endocrine, nutritional and metabolic diseases
CPT/HCPCS: 80306; 85025; 86850; 86900; 86901

== ENCOUNTER 2020-09-15 13:07 | Emergency (ER) | payer OTHER ==
[2020-09-15 13:11] VITALS: BP 125/77; PULSE 90; RESP 18; TEMP 98.3
--- NOTE | 2020-09-15 13:28 | ED ---
General Adult HPI - General Chief complaint: Recheck/Abnormal Lab/Rx Stated complaint: stitch loose on Time Seen by Provider: 09/15/20 13:20 Source: patient, RN notes reviewed Mode of arrival: ambulatory Limitations: no limitations - History of Present Illness Initial comments: 24-year-old female presents emergency Department chief complaint of opening of her . Patient states that she noticed a small opening on The right side. No pain no drainage no fevers or chills. Patient had by Dr. Willard 3 days ago. Patient offers no other complaints. - Related Data Home Medications Medication Instructions Recorded Confirmed Aspirin [Adult Low Dose Aspirin EC] 81 mg PO DAILY 12/14/18 09/09/20 Previous Rx's Medication Instructions Recorded HYDROcodone/APAP 5-325MG [[place] 1 tab PO Q4HR PRN #30 tab 09/14/20 5-325] Ibuprofen [Motrin] 600 mg PO Q6HR PRN #30 tab 09/14/20 Allergies Allergy/AdvReac Type Severity Reaction Status Date / Time No Known Allergies Allergy Verified 09/09/20 11:55 Review of Systems ROS Statement: Those systems with pertinent positive or pertinent negative responses have been documented in the HPI. ROS Other: All systems not noted in ROS Statement are negative. Past Medical History Past Medical History: GERD/Reflux, Hypertension Additional Past Medical History / Comment(s): pre-eclampsia & high BP w/first History of Any Multi-Drug Resistant Organisms: None Reported Past Surgical History: Section, Tonsillectomy Past Anesthesia/Blood Transfusion Reactions: No Reported Reaction Additional Past Anesthesia/Blood Transfusion Reaction / Comment(s): no hx of transfusion Past Psychological History: Anxiety Smoking Status: Former smoker Past Alcohol Use History: None Reported Past Drug Use History: Marijuana - Past Family History Mother Family Medical History: Cancer, Thyroid Disorder General Exam Limitations: no limitations General appearance: alert, in no apparent distress Head exam: Present: atraumatic, normocephalic, normal inspection Eye exam: Present: normal appearance, PERRL, EOMI. Absent: scleral icterus, conjunctival injection, periorbital swelling Respiratory exam: Present: normal lung sounds bilaterally. Absent: respiratory distress, wheezes, rales, rhonchi, stridor Cardiovascular Exam: Present: regular rate, normal rhythm, normal heart sounds. Absent: systolic murmur, diastolic murmur, rubs, gallop, clicks GI/Abdominal exam: Present: soft, normal bowel sounds, other ( incision noted, there is a small area of wound dehiscence on the right there is no drainage or discharge no erythema). Absent: distended, tenderness, guarding, rebound, rigid Course Vital Signs 09/15/20 13:08 Temperature 98.3 F Pulse Rate 90 Respiratory 18 Rate Blood Pressure 125/77 O2 Sat by Pulse 99 Oximetry Medical Decision Making - Medical Decision Making Steri-Strips were applied over the area of wound dehiscence there is no signs of infection. We discussed close monitoring in contacting her [employer] she is return for any worsening or change in symptoms. Disposition Clinical Impression: Wound dehiscence, Disposition: HOME SELF-CARE Condition: Stable Instructions (If sedation given, give patient instructions): Wound Dehiscence (ED) Additional Instructions: Please return to the Emergency Department if symptoms worsen or any other concerns. Is patient prescribed a controlled substance at d/c from ED?: No Referrals: None,Stated [Primary Care Provider] - 1-2 days Time of Disposition: 13:28
== END 2020-09-15 14:06 | disposition home or self-care (01) ==
LOC: EC 13:07
DX: T81.30XA Disruption of wound, unspecified, initial encounter (principal); I10 Essential (primary) hypertension; Z79.82 Long term (current) use of aspirin; Z87.891 Personal history of nicotine dependence; Z87.59 Personal history of other complications of pregnancy, childbirth and the puerperium
CPT/HCPCS: 99283

== ENCOUNTER 2020-09-16 13:33 | Emergency (ER) | payer OTHER ==
[2020-09-16 13:37] VITALS: BP 131/79; PULSE 77; TEMP 98
--- NOTE | 2020-09-16 14:48 | ED ---
Wound/Laceration HPI - General Chief Complaint: Wound/Laceration Stated Complaint: Revisit,Bleeding stitches Time Seen by Provider: 09/16/20 14:03 Source: patient, RN notes reviewed, old records reviewed Mode of arrival: ambulatory Limitations: no limitations - History of Present Illness Initial Comments: Is a 24-year-old female presents emergency room today for concern for wound dehiscence on . Patient had a performed 5 days ago. She was seen in the emergency department yesterday for similar complaint had Steri- Strips placed. She reports that she noticed a small yellow clear drainage from the site and wanted to have the wound rechecked. Denies any fevers chills. Denies any abnormal pelvic pain. She denies history of resistant skin infections. - Related Data Home Medications Medication Instructions Recorded Confirmed Aspirin [Adult Low Dose Aspirin EC] 81 mg PO DAILY 12/14/18 09/09/20 Previous Rx's Medication Instructions Recorded HYDROcodone/APAP 5-325MG [[place] 1 tab PO Q4HR PRN #30 tab 09/14/20 5-325] Ibuprofen [Motrin] 600 mg PO Q6HR PRN #30 tab 09/14/20 Allergies Allergy/AdvReac Type Severity Reaction Status Date / Time No Known Allergies Allergy Verified 09/16/20 13:37 Review of Systems ROS Statement: Those systems with pertinent positive or pertinent negative responses have been documented in the HPI. ROS Other: All systems not noted in ROS Statement are negative. Past Medical History Past Medical History: GERD/Reflux, Hypertension Additional Past Medical History / Comment(s): pre-eclampsia & high BP w/first History of Any Multi-Drug Resistant Organisms: None Reported Past Surgical History: Section, Tonsillectomy Past Anesthesia/Blood Transfusion Reactions: No Reported Reaction Additional Past Anesthesia/Blood Transfusion Reaction / Comment(s): no hx of transfusion Past Psychological History: Anxiety Smoking Status: Former smoker Past Alcohol Use History: None Reported Past Drug Use History: Marijuana - Past Family History Mother Family Medical History: Cancer, Thyroid Disorder General Exam - General Exam Comments Initial Comments: 24 year old female, no distress. Limitations: no limitations General appearance: alert, in no apparent distress Head exam: Present: atraumatic, normocephalic, normal inspection Eye exam: Present: normal appearance, PERRL, EOMI. Absent: scleral icterus, conjunctival injection, periorbital swelling ENT exam: Present: normal exam, mucous membranes moist Neck exam: Present: normal inspection. Absent: tenderness, meningismus, lymphadenopathy Respiratory exam: Present: normal lung sounds bilaterally. Absent: respiratory distress, wheezes, rales, rhonchi, stridor Cardiovascular Exam: Present: regular rate, normal rhythm, normal heart sounds. Absent: systolic murmur, diastolic murmur, rubs, gallop, clicks GI/Abdominal exam: Present: soft, normal bowel sounds, other (Well-appearing incision site over lower abdominal suprapubic area. There is a to some minor dehiscence on the right side of the wound. No drainage.). Absent: distended, guarding, rebound, rigid Extremities exam: Present: normal inspection, full ROM, normal capillary refill, other. Absent: tenderness, pedal edema, joint swelling, calf tenderness Back exam: Present: normal inspection Neurological exam: Present: alert, oriented X3, CN II-XII intact Psychiatric exam: Present: normal affect, normal mood Skin exam: Present: warm, dry, intact, normal color. Absent: rash Course Vital Signs 09/16/20 13:35 Temperature 98.0 F Pulse Rate 77 Respiratory 20 Rate Blood Pressure 131/79 O2 Sat by Pulse 100 Oximetry Medical Decision Making - Medical Decision Making Patient presents for concern for wound dehiscence over her . She has a small 1-2 cm area of wound dehiscence on the right side of the suprapubic incision. There is no erythema. No purulent drainage. Wound was cleaned and Steri-Strips were reapplied. Discussed the Patient needs follow-up with MANAGING ATTORNEY. His according appointment on Friday. Discussed calling on Friday for earlier appointment.. Patient Disposition Clinical Impression: Wound dehiscence Disposition: HOME SELF-CARE Condition: Good Instructions (If sedation given, give patient instructions): Care For Your Stitches (ED) Additional Instructions: d Please follow up with OBGYN doctor if symptoms have not improved over the next two days. Please return to the emergency room if your symptoms increase or worsen or for any other concerns. Is patient prescribed a controlled substance at d/c from ED?: No Referrals: None,Stated [Primary Care Provider] - 1-2 days
[2020-09-16 15:16] VITALS: RESP 18
== END 2020-09-16 15:18 | disposition home or self-care (01) ==
LOC: EC 13:33
DX: T81.30XA Disruption of wound, unspecified, initial encounter (principal); I10 Essential (primary) hypertension; Z79.82 Long term (current) use of aspirin; Z87.891 Personal history of nicotine dependence; Z98.890 Other specified postprocedural states
CPT/HCPCS: 99283

== ENCOUNTER 2020-09-21 17:19 | Emergency (ER) | payer OTHER ==
[2020-09-21 17:26] VITALS: RESP 18
--- NOTE | 2020-09-21 18:15 | ED ---
General Adult HPI - General Chief complaint: Skin/Abscess/Foreign Body Stated complaint: Post stitch infected Time Seen by Provider: 09/21/20 17:30 Source: patient, RN notes reviewed Mode of arrival: ambulatory Limitations: no limitations - History of Present Illness Initial comments: 24-year-old female presents to the emergency department for problem with C- section line. Patient had a on 09/12/[address] Mg. Patient reports that it has opened about 1 cm in size shortly afterward. Patient states she has been seen in the emergency room twice prior to have Steri-Strips applied. She did follow up with MECHANICAL FACILITIES TECHNICIAN yesterday who did examine the area, recommended monitoring. Patient states today she noticed it was open again in the same spot. Patient denies fevers or chills. Denies abdominal pain.Patient has no other complaints at this time including shortness of breath, chest pain, abdominal pain, nausea or vomiting, headache, or visual changes. - Related Data Home Medications Medication Instructions Recorded Confirmed Aspirin [Adult Low Dose Aspirin EC] 81 mg PO DAILY 12/14/18 09/09/20 Previous Rx's Medication Instructions Recorded HYDROcodone/APAP 5-325MG [[place] 1 tab PO Q4HR PRN #30 tab 09/14/20 5-325] Ibuprofen [Motrin] 600 mg PO Q6HR PRN #30 tab 09/14/20 Allergies Allergy/AdvReac Type Severity Reaction Status Date / Time No Known Allergies Allergy Verified 09/21/20 17:26 Review of Systems ROS Statement: Those systems with pertinent positive or pertinent negative responses have been documented in the HPI. ROS Other: All systems not noted in ROS Statement are negative. Past Medical History Past Medical History: GERD/Reflux, Hypertension Additional Past Medical History / Comment(s): pre-eclampsia & high BP w/first History of Any Multi-Drug Resistant Organisms: None Reported Past Surgical History: Section, Tonsillectomy Past Anesthesia/Blood Transfusion Reactions: No Reported Reaction Additional Past Anesthesia/Blood Transfusion Reaction / Comment(s): no hx of transfusion Past Psychological History: Anxiety Smoking Status: Former smoker Past Alcohol Use History: None Reported Past Drug Use History: Marijuana - Past Family History Mother Family Medical History: Cancer, Thyroid Disorder General Exam Limitations: no limitations General appearance: alert, in no apparent distress Head exam: Present: atraumatic, normocephalic, normal inspection Eye exam: Present: normal appearance, PERRL, EOMI. Absent: scleral icterus, conjunctival injection, periorbital swelling ENT exam: Present: normal exam Neck exam: Present: normal inspection, full ROM. Absent: tenderness, meningismus, lymphadenopathy Respiratory exam: Present: normal lung sounds bilaterally. Absent: respiratory distress, wheezes, rales, rhonchi, stridor Cardiovascular Exam: Present: regular rate, normal rhythm, normal heart sounds. Absent: systolic murmur, diastolic murmur, rubs, gallop, clicks GI/Abdominal exam: Present: soft, normal bowel sounds, other ( scar, well appearing healing process with small 1 cm right sided dehiscence with minimal serosanginous drainage). Absent: distended, tenderness, guarding, rebound, rigid Neurological exam: Present: alert Psychiatric exam: Present: normal affect, normal mood Course Vital Signs 09/21/20 17:22 Temperature 98.8 F Pulse Rate 81 Respiratory 18 Rate Blood Pressure 133/83 O2 Sat by Pulse 98 Oximetry Medical Decision Making - Medical Decision Making Physical exam as documented. There is a small 1-2 cm area of dehiscence with serosanguineous drainage. No redness. No purulent drainage. No induration. No evidence of infection. Area was cleaned and Steri-Strips were applied. She will again follow up with MECHANICAL FACILITIES TECHNICIAN for this issue. She will return here for any worsening symptoms. Disposition Clinical Impression: Wound dehiscence Disposition: HOME SELF-CARE Condition: Good Instructions (If sedation given, give patient instructions): Wound Dehiscence (ED) Additional Instructions: Please follow up with MECHANICAL FACILITIES TECHNICIAN for a recheck. Monitor for any signs of infection such as spreading redness, pus, or fevers and return if these occur. Return for any other worsening symptoms. Is patient prescribed a controlled substance at d/c from ED?: No Referrals: Jarrod Mg DO [Doctor of Osteopathic Medicine] - 1-2 days Time of Disposition: 18:10
[2020-09-21 18:26] VITALS: BP 128/80; PULSE 76; TEMP 98.2
== END 2020-09-21 18:25 | disposition home or self-care (01) ==
LOC: EC 17:19
DX: O90.0 Disruption of cesarean delivery wound (principal); I10 Essential (primary) hypertension; Z79.82 Long term (current) use of aspirin; Z87.891 Personal history of nicotine dependence
CPT/HCPCS: 99283